=== PATIENT | female | born 1950 | race Caucasian/White ===

== ENCOUNTER 2016-07-20 09:18 | Inpatient (IN) | payer MEDICARE, OTHER ==
[2016-07-20] VITALS (10 sets, daily range): BP systolic 116–137; BP diastolic 73–82; PULSE 54–76; RESP 12–17; O2SAT 93–97
[~2016-07-20] VITALS: Ht 170.2 cm; Wt 71.7 kg
[~2016-07-20 09:18] MED LIST: Clindamycin 600 mg/50 mL D5W IV ONE; Lactated Ringer's 1,000 ML IV SCH; OMEP20TA86 PO; acyclovir PO; pravastatin PO
[2016-07-20] MEDS ORDERED: HYDR-656 PO (10:06)
[2016-07-20] MEDS ORDERED: KEN25CR EXT (10:06)
[2016-07-20] MEDS ORDERED: OXYC1TAB24 PO (10:06)
[2016-07-20] MEDS ORDERED: Lactated Ringer's 1,000 ML IV ONE (10:21)
--- NOTE | 2016-07-20 10:48 | PCM.HPANE ---
Patient Data Surgeon Admitting Provider: Attending Provider:Kvng Evans MD Primary Care Physician:Dari Owen Other Provider:Rosetta Farias Anesthesia Reason for Visit Right Knee Arthritis Ht/WT & BMI Height (Feet): 5 Height (Inches): 7 Weight (Kilograms): 71.7 Body Mass Index 24.00 Allergies Coded Allergies: Cephalosporins (Verified Allergy, Unknown, HIVES, 07/20/16) latex (Verified Allergy, Unknown, rash, 07/17/16) nickel (Verified Allergy, Unknown, RASH, 07/20/16) Uncoded Allergies: CHLORHEXADINE (Allergy, Unknown, rash, 07/17/16) Past Anesthesia History Anesthesia History: Positive for:: Anesthesia Reactions (significant nausea after one shoulder surgery), Denies:: Abnormal Airway, Difficult Intubation, Fam Anesthesia Reaction ( nausea ) Diabetes History Hx Diabetes?: No MRSA MRSA: No Medications Hypertension Medication: No Home Meds Incl Beta Adriel: No Reported Medications hydrOXYzine Hcl (HydrOXYzine Hcl)25 Mg Fgfcfm91 Mg PO HS PRN For Pain 07/20/16 oxyCODONE-Acetaminophen 5-325 mg 1 Each Tablet1 Tab PO Q6H PRN For Pain Ref 0 07/20/16 Triamcinolone Acet (Triamcinolone Acetonide Cream)1 Applic/0.25 Gm Cr1 Applic EXT BID #60 GM Ref 0 07/20/16 [pravastatin] No Conflict Check40 Mg PO DAILY 07/17/16 Omeprazole 20 Mg Tablet.dr20 Mg PO BID Ref 0 07/17/16 [acyclovir] No Conflict Ouepc564 Mg PO PRN PRN outbreaks 07/17/16 Discontinued Reported Medications Estradiol-Expunged Drug, Do Not Renew! (Estrace-Expunged Drug, Do Not Renew!) 0.5 Mg Tablet 12/23/07 Progesterone,Micron-Expunged Drug, Do Not Jose (Prometrium-Expunged Drug, Do Not Renew!)100 Mg Capsule 12/23/07 History History of ENT Problems?: No HEENT History: Denies:: Abnormal Airway Cataracts Difficult Intubation Dysphagia Glaucoma Hearing Problem Sinus Problem TMJ Hx of Heart Problems?: No Cardiovascular History: Positive for:: Hypertension (hld) Denies:: AICD Atrial Fibrillation Cardiac Surgery Chest Pain Congestive Heart Failure Coronary Artery Disease Edema Heart Murmur Irregular Heartbeat Pacemaker Peripheral Vascular Hx of Respiratory Problem?: No Respiratory History: Denies:: Asthma COPD Emphysema Oxygen Administration Pneumonia Pulmonary Embolism Tuberculosis Use of C-PAP Machine Hx Neurologic Problems?: Yes Neurological History: Denies:: Alzheimer's Disease CVA Dementia Dizziness Headaches Multiple Sclerosis Parkinson's Disease Seizures TIA Hx of GI Problems?: Yes Gastrointestinal History: Positive for:: Gall Bladder Disease (removed) Gastroesphageal Reflux Heartburn Denies:: Diverticulitis Gastrointestinal Bleeding Hepatitis Hiatal Hernia Rectal Bleeding Hx of Problems?: No Genitourinary History: Denies:: Kidney Stones Urinary Tract Infection Female Hx: Denies:: Currently (post menopausal) Problems with Breasts? Skin History: Denies:: History Skin Disorders? 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 Denies:: Blood Transfuse Reaction Blood Transfusions Hx Diabetes: No Hx Alcohol Use: YesAlcoholic Drinks Per Day: 1-2 glasses wine dailyHx Substance Use: NoHave You Smoked inLast 12 mo: No Stop/Bang Treated for Sleep Apnea?: No Do You Have a CPAP Machine?: No S-Snoring: Do You Snore Loudly: No T-Tired: feel tired, fatigued: No O-Obsered: Observed not breath: No P-Blood Pressure: treated: No B- Body Mass Index > 35 kg/m2: No A- Age over 50: Yes N- Neck Large Circumference: No G- Gender Male: No TAMIKA Total Score: 1 TAMIKA Risk Assessment: Low Risk, <3 Yes Risk Assessment Category Category 1A: Patient has history of documented sleep apnea, and HAS NOT received any narcotic, sedative or anesthesia administration during this stay. Category 1B: Patient has history of documented sleep apnea, and HAS received any narcotic , sedative or anesthesia administration during this stay Category 2: Patient has SUSPECTED Obstructive Sleep Apnea, and HAS received any narcotic , sedative or anesthesia administration during this stay. Category 3: Patient has SUSPECTED Obstructive Sleep Apnea and HAS NOT received narcotic, sedative or anesthesia administration during this stay. Category 4: Outpatient in Procedural Areas with known sleep apnea or who screen positive for High Risk via the STOP/BANG questionnaire. Exam Exam Vital Signs Vital Signs Date Time Temp Pulse Resp B/P Pulse Ox O2 Delivery O2 Flow Rate FiO2 07/20/16 09:50 35.8 59 16 137/79 95 Room Air General Appearance: Oriented X3 HEENT/AIRWAY: MP 2 Lungs: Normal Air Movement Heart: Regular Rate/Rhythm Meds/Labs/Diagnostics Admission Meds Current Medications Vancomycin HCl 1250 mg/Dextrose/ Water 250 ml @ 166.667 mls/hr PREOP ONCE IV Last administered on 07/20/16at 10:20; Start 07/20/16 at 06:00; Stop 07/20/16 at 07:29; Status DC Lactated Ringer's (Lr) 1,000 ml @ ud STK-MED ONCE IV Last administered on at 10:21; Start 07/20/16 at 10:21; Stop 07/20/16 at 10:22; Status DC Plan Impression Patient chart reviewed, patient interviewed and anesthestic plan with risks, benefits, and alternatives discussed, and informed consent obtained. NPO Status: 07/20/16 0700 ASA Physical Status: ASA2 Mod Systemic Disease Anesthetic Plan: GA, Regional Block Bene/Risks/Altern/Consents: Yes HP Complete Prior to Induction: Yes Tony Sebastian MD Jul 20, 2016 10:48
[2016-07-20] MEDS ORDERED: Bupivacaine Liposome 1.3% 20 mL Inj INFILTRATE ONE (12:00)
[2016-07-20] MEDS ORDERED: Bupivacaine-MPF 0.25%/EPI 30 mL Inj INFILTRATE ONE (12:00)
[2016-07-20] MEDS ORDERED: Gentamicin 40 mg/mL 2 mL Inj IRRIGATION ONE (12:00)
[2016-07-20] MEDS ORDERED: Bupivacaine Liposome 1.3% 20 mL Inj ONE (12:04)
[2016-07-20] MEDS ORDERED: Magnesium Hydroxide 10 mL Oral Concentration PO PRN (12:35)
[2016-07-20] MEDS ORDERED: Vancomycin Dose per Pharmacist XX ONE (12:35)
[2016-07-20] MEDS ORDERED: Polyethylene Glycol (PEG) 17 Gm Powder PO PRN (12:35)
[2016-07-20] MEDS ORDERED: Ketorolac 15 mg/mL Inj IVPUSH PRN (12:35)
[2016-07-20] MEDS ORDERED: HYDROcodone-APAP 5-325 mg Tablet PO PRN (12:35)
[2016-07-20] MEDS ORDERED: diphenhydrAMINE 25 mg Capsule PO PRN (12:35)
[2016-07-20] MEDS ORDERED: HYDROmorphone 1 mg/mL Inj IVPUSH PRN (12:35)
[2016-07-20] MEDS ORDERED: Ondansetron 2 mg/mL 2 mL Inj IVPUSH PRN ×2 (12:35→13:30)
[2016-07-20] MEDS ORDERED: Sodium Biphos-Phos 133 mL Enema RECTAL PRN (12:35)
[2016-07-20] MEDS ORDERED: MetoCLOpramide 5 mg/mL 2 mL Inj IVPUSH PRN (12:35)
[2016-07-20] MEDS ORDERED: Lactated Ringer's 1,000 ML IV SCH (13:29)
[2016-07-20] MEDS ORDERED: Lactated Ringer's 500 ML IV PRN (13:29)
--- NOTE | 2016-07-20 13:29 | DRSVH ---
PROCEDURE: X-RAY RIGHT KNEE, ONE OR TWO VIEWS ([id number]) INDICATIONS: tka TECHNIQUE: 2 view(s) of the knee acquired. COMPARISON: [facility], CR, XR KNEE ARTHRITIC SERIES RT, 05/29/2016, 13:54. FINDINGS: Bones: Patient is status post knee joint arthroplasty. Hardware components are in expected position s. Visualized bony structures are intact. Soft tissues: Overlying postoperative changes are noted. IMPRESSION: Right knee arthroplasty with expected post surgical changes. Dictated by: Lorri Blackwell M.D. on 07/20/2016 at 13:28 Approved by: Lorri Blackwell M.D. on 07/20/2016 at 13:28
[2016-07-20] MEDS: HYDROmorphone 1 mg/mL Inj IVPUSH PRN ×2 (13:30→13:42)
[2016-07-20] MEDS ORDERED: EPHEDrine Sulfate 50 mg/mL Inj IVPUSH PRN (13:30)
[2016-07-20] MEDS ORDERED: fentaNYL-PF 50 mCg/mL 2 mL Inj IVPUSH PRN (13:30)
[2016-07-20] MEDS ORDERED: Phenylephrine 10,000 mCg/mL Inj IVPUSH PRN (13:30)
[2016-07-20] MEDS ORDERED: Dexamethasone 4 mg/mL Inj IVPUSH PRN (13:30)
--- NOTE | 2016-07-20 13:31 | PCM.ANEP1 ---
Post Anesthesia Phase 1 PACU Phase 1 Assessment Vital Signs Vital Signs Date Time Temp Pulse Resp B/P Pulse Ox O2 Delivery O2 Flow Rate FiO2 07/20/16 09:50 35.8 59 16 137/79 95 Room Air Anesthetic Administered: GA Level of Alertness: Awake, talking Pain: No Nausea or Vomiting: No Oxygen Delivery: Room Air Lungs: Normal Air Movement Tony Sebastian MD Jul 20, 2016 13:30
--- NOTE | 2016-07-20 13:31 | PCM.ANEP2 ---
Post Anesthesia Evaluation ASA/CMS Post Anesthesia VS in Patient's Normal Range?: Yes Resp Stable; Airway Patent?: Yes CV Function & Hydration Stable: Yes Mental Status Recovered?: Yes Pain control Satisfactory?: Yes N/V Control Satisfactory?: Yes Tony Sebastian MD Jul 20, 2016 13:31
--- NOTE | 2016-07-20 15:30 | NUR ---
ADMIT TO [facility] Patient arrived to room 1005 in hospital bed. Alert and oriented, answering questions. Neurovascular checks WNL to R foot. Alvarado wrap bandage in place with ice pack to R knee. Hemovac in place and clamped until 1800. On 2 LPM NC with O2 sats @ 97%. IV patent to R hand. Rates pain 2/10 in R knee, slight discomfort but tolerable. Had IV dilaudid in PACU. Oriented to room. Will continue with hourly rounding.
--- NOTE | 2016-07-20 16:00 | OP ---
[address] [address] OPERATIVE REPORT PATIENT: LUZ PURCELL : 1950 MR#: [id number] ADMIT: 07/20/2016 JOB ID: [id number] DATE OF SURGERY: 07/20/2016 PREOPERATIVE DIAGNOSIS(ES): Advanced medial compartment osteoarthritis, right knee. POSTOPERATIVE DIAGNOSIS(ES): Advanced medial compartment osteoarthritis, right knee. PROCEDURE: Total knee replacement. SURGEON: Kvng Evans MD. OUTBOUND SALES EXECUTIVE: Ben Grimes PA-C. Field Court Researcher required due to the major complexity of the operation. INDICATIONS: This woman has had progressive disability, uncontrolled by conservative treatment. She elected to proceed with a total knee replacement. She understands and accepts the potential for risks and complications, which include, but are not limited to, infection, thromboembolic and neurovascular events, as well as potential for implant failure. Understanding these, she wishes to proceed. DESCRIPTION OF PROCEDURE: The patient was prepped and draped in the usual sterile fashion. An anteromedial approach was made to the knee. The dissection was carried down. The patella was subluxed laterally, cut transversely, sized. A 32 patellar protection plate was utilized. A drill hole was placed in the distal femur. A 5-degree valgus distal femoral cut was made. The external rotation tool was utilized, and the femur was sized to a 5. Chamfer-cutting block affixed in appropriate position and rotation, and drill holes and chamfer cuts were made. All meniscal tissue and osteophytes removed from the knee. The extramedullary tool was utilized to cut the proximal tibia. This was sized to a D chamfer block. Our D tibia affixed in appropriate position and rotation. The tibia was prepared in a standard fashion. Trial reduction performed. A 10 mm poly produced excellent flexion, extension, balance and tracking. All meniscal tissue and osteophytes were removed from the knee. Pressurized lavage was followed by pressurized cementation of the components. Excess cement was removed during the curing process. Final construct was assembled. Poly snapped securely into place. Wounds irrigated with copious quantities of sterile irrigation and dilute Betadine solution. A deep Hemovac drain was left, and the knee was closed with #2 Quill deep, followed by 2-0 Vicryl, 3-0, 4-0 intracuticular stitch. Sterile dressings were applied. The patient was returned to the recovery room in stable condition. Standard postoperative plan recommended.
[2016-07-20] MEDS ORDERED: CeFAZolin Inj 2 GM in IV Premix 1 EACH IV SCH (16:30)
[2016-07-20] MEDS: oxyCODONE-Acetamin 5-325 mg Tablet PO PRN ×3 (16:51→22:56)
[2016-07-20] MEDS: Sodium Chloride LOK Flush 10 mL Syringe IV SCH (16:51)
[2016-07-20 18:13] LABS: APPEARANCE,URINE CLEAR (CLEAR,HAZY); COLOR,URINE YELLOW (YELLOW); OCCULT BLOOD,URINE NEGATIVE (NEGATIVE); UROBILINOGEN,URINE NORMAL (NORMAL)
[2016-07-20] MEDS: Senna-Docusate 8.6-50 mg Tablet PO SCH (19:40)
[2016-07-20] MEDS ORDERED: fentaNYL-PF 50 mCg/mL 2 mL Inj ONE (22:19)
[2016-07-21] MEDS: Sodium Chloride LOK Flush 10 mL Syringe IV SCH ×3 (00:28→17:05)
[2016-07-21] MEDS: oxyCODONE-Acetamin 5-325 mg Tablet PO PRN ×6 (03:11→21:10)
--- NOTE | 2016-07-21 04:10 | NUR ---
Pain Pt reporting pain up to 3/10 and reports pain to be tolerable taking 1 tab of Percocet every 4 hrs. Pt also reporting increased stomach acid and was given milk of mag. Pt has been getting up to the BR with SBA and FWW. Tolerating activity well. Hemovac so far has put out 130 ml. Continue to monitor.
[2016-07-21 05:51] VITALS: BP 117/70; PULSE 70; RESP 16; O2SAT 95
[2016-07-21] MEDS: Senna-Docusate 8.6-50 mg Tablet PO SCH ×2 (07:53→21:10)
--- NOTE | 2016-07-21 08:20 | PCM.PNORTH ---
Subjective Date of Service: Jul 21, 2016 Visit Information: Reason for Visit Right Knee Arthritis Surgery/Surgery Date R TKA 07/20/16 Post-Op Day # Date of Admission: Jul 20, 2016 at 14:08 Hospital Day # Subjective Foundation awake and alert this morning and sitting up in bed. Well positioned. No complaints of pain at this time. Discussed typical postoperative course with patient and encouraged this patient with formal therapy. Patient does have help at home and anticipates discharging his home on her before postop day #3. Patient does have stairs at her home but he is planning to reside on the ground floor until she is able to navigate stairs. Patient does make a request for a left platform arm device on her walker secondary to recent carpometacarpal joint replacement surgery at the left hand. Postop General: No Complaints, No Shortness of Breath, No Chest Pain, Good Appetite Pain Management: PO Objective Exam Objective Orientation: Alert and oriented 3 and pleasant. Dressing: Interoperative dressing clean dry and intact Wound: Not observed today Compartments: Calf and thigh are soft and nontender. Mobility/sensation: Toe wiggle and sensation are intact in right lower extremity distally Fitch: Absent Drain: Hemovac drain is in place and working. Gait: No gait with physical therapy yet as of this time. Vital Signs and I/O Vital Sign - Last Date Time Temp Pulse Resp B/P Pulse Ox O2 Delivery O2 Flow Rate FiO2 07/21/16 05:51 36.7 70 16 117/70 95 Room Air 07/20/16 14:36 2.00 Intake and Output 07/20/16 07/20/16 07/21/16 Cumulative From/Thru 15:00 23:00 07:00 07/17/16 16:37 - 07/21/16 05:51 Intake Total 1410 ml 550 ml 800 ml 2760 ml Output Total 700 ml 225 ml 925 ml Balance 1410 ml -150 ml 575 ml 1835 ml Intake Oral 550 ml 800 ml 1350 ml IV Total 1410 ml 1410 ml Output Urine Total 700 ml 60 ml 760 ml Drainage Total 0 ml 165 ml 165 ml # Voids 2 2 # Bowel Movements 0 0 Lab & Micro Results Laboratory Tests Test 07/20/16 18:00 07/21/16 06:30 Urine Color Yellow (YELLOW) Urine Appearance Clear (CLEAR,HAZY) Urine pH 6.0 (5.0-8.0) Urine Specific Index 1.020 (1.003-1.035) Urine Protein Negativemg/dL (NEG,TRACE) Urine Glucose (UA) Negativemg/dL (NEGATIVE) Urine Ketones Tracemg/dL (NEGATIVE) Urine Occult Blood Negative (NEGATIVE) Urine Nitrite Negative (NEGATIVE) Urine Bilirubin Negative (NEGATIVE) Urine Urobilinogen Normalmg/dL (NORMAL) Urine Leukocyte Esterase Negative (NEGATIVE) Urine RBC 0-2/hpf (0-2) Urine WBC 0-5/hpf (0-5) Urine Epithelial Cells None/hpf (NONE-MOD) Urine Crystals None seen (NONE SEEN) Urine Bacteria Few/hpf (NONE-FEW) Urine Hyaline Casts None/lpf (NONE) Urine Granular Casts None seen (NONE SEEN) Urine Waxy Casts None seen (NONE SEEN) Urine Red Blood Cell Casts None seen (NONE SEEN) Urine White Blood Cell Casts None seen (NONE SEEN) Urine Mucus None seen (None Seen) Urine Trichomonas None seen (NONE SEEN) Urine Yeast None (NONE SEEN) Urinalysis Comment None Urine Culture Reflexed Not indicated General Appearance: Alert, Oriented X3, Cooperative, No Acute Distress Extremities: No Compartment Syndrom Noted, Thigh & Calf Soft/Nontender Postop Sensory Motor: Distal Motor Intact, Movement in Toes, Distal Sensation Intact SURGICAL WOUND : Drain Location Body Site: Knee Wound Drainage Type: Hemovac Activity: Activity per PT, Ambulate with PT (weightbearing as tolerated on the right lower extremity using a front wheeled walker with left upper extremity platform) Catheters: None Assessment & Plan Impression Patient is a 66-year-old female who is undergone an elective right total knee arthroplasty on 07/20/2016. She is well alert and oriented and in good spirits. She is planning for a quick recovery and participation with formal therapy with discharge to home. Problems: Plan Postop day # 1 from right total knee arthroplasty on 07/20/[address] Kvng Evans. Weight bearing status: Weightbearing as tolerated on the right lower extremity using a frontwheel walker with left upper extremity platform Mobility aid: Forward walker with left upper extremity platform Immobilization: None Precautions: None Physical therapy: Continue formal physical therapy for mobility, gait and safety. Please use frontwheel walker with left upper extremity platform. Pain control: Continue pain control with by mouth pain medications. Please avoid IV pain medications. DVT prophylaxis: ASA 325 mg EC by mouth twice a day 6 weeks postop for DVT prophylaxis. Wound care: Keep wound clean, dry and covered until seen in office in 2 weeks. Infectious DZ: None Fitch: Absent Dressing: Interoperative dressings clean dry and intact and will be changed on postop day #2 Drain: Hemovac drain is in place and will be discontinued today on 2015. Nursing: Nursing please discontinue Hemovac drain today on postop day #1. 2-week follow-up: Follow-up in 2 weeks at [facility] orthopedic clinic on prearranged appointment for wound check and suture removal. 6-week follow-up: Follow-up in 6 weeks at [facility] orthopedic clinic on prearranged appointment with Dr. Kvng Evans with right 2 view knee x- rays on arrival. Discharge plan: Anticipate discharge to home with family has caregiver for postop day #3. VTE Prophylaxis: SCDs (SCD on the left lower extremity), Other (ASA 325 mg EC by mouth twice a day 6 weeks postop for DVT prophylaxis) Jasson Freire PA-C Jul 21, 2016 08:20
[2016-07-21] MEDS ORDERED: Vancomycin Inj 1,000 MG in IV Premix 1 EACH IV SCH (08:30)
[2016-07-21 08:56] LABS: BASOPHILS % (AUTO) 0.1 % (0-3); EOSINOPHILS % (AUTO) 0.2 % (0-5); MONOCYTES % (AUTO) 9.7 % (4-12); Mean Corpuscular Hemoglobin 30.9 pg (27.0-35.0); Mean Corpuscular Volume 91.7 fL (81-100); NEUTROPHILS % (AUTO) 68.5 % (40-74); Platelet Count 316 bil/L (150-400)
[2016-07-21] MEDS ORDERED: Ondansetron 2 mg/mL 2 mL Inj ONE (11:29)
[2016-07-21] MEDS ORDERED: Propofol 10,000 mCg/mL 20 mL Inj ONE (11:29)
[2016-07-21] MEDS ORDERED: Dexamethasone 4 mg/mL Inj ONE (11:29)
[2016-07-21] MEDS ORDERED: MetoCLOpramide 5 mg/mL 2 mL Inj ONE (11:29)
[2016-07-21 13:46] VITALS: BP 142/80; PULSE 52; RESP 17; O2SAT 96
--- NOTE | 2016-07-21 15:59 | NUR ---
PAIN/ACTIVITY Adductor block wearing off and patient reports pain 8/10 burning and aching pain. Required 2 tabs of percocet for pain management, but states the medication was effective in bringing down pain. Ambulated in hallway with platform walker with therapy. Ambulating to bathroom with 1 person SBA.
[2016-07-21 21:05] VITALS: BP 134/85; PULSE 60; RESP 16; O2SAT 95
[2016-07-21] MEDS: Pantoprazole 20 mg ER24 Tablet PO SCH (21:10)
[2016-07-22] MEDS: Sodium Chloride LOK Flush 10 mL Syringe IV SCH ×2 (00:37→08:41)
[2016-07-22] MEDS: oxyCODONE-Acetamin 5-325 mg Tablet PO PRN ×4 (01:10→12:08)
[2016-07-22 04:06] VITALS: BP 143/77; PULSE 60; RESP 16; O2SAT 94
--- NOTE | 2016-07-22 06:19 | NUR ---
Pain/hemovac Pt reporting pain up to 5/10 and is taking 1 tab of Percocet q 4 hrs and pt reports this to be effective for pain control. Hemovac DC'd this morning, intact, without issues. Gauze and tegaderm applied to site. Took down Alvarado wrap dressing, Steri strips to incision CDI, applied Island dressing. Pt continues to get up to BR with SBA and platform walker, tolerating activity well. Right knee a bit swollen this morning, ice applied.
[2016-07-22] MEDS: Pantoprazole 20 mg ER24 Tablet PO SCH (08:03)
[2016-07-22] MEDS: Senna-Docusate 8.6-50 mg Tablet PO SCH (08:41)
[2016-07-22] MEDS ORDERED: hydrOXYzine Pamoate 25 mg Capsule PO PRN (09:30)
--- NOTE | 2016-07-22 09:55 | PCM.PNORTH ---
Subjective Date of Service: Jul 22, 2016 Visit Information: Reason for Visit Right Knee Arthritis Surgery/Surgery Date R TKA 07/20/16 Post-Op Day # Date of Admission: Jul 20, 2016 at 14:08 Hospital Day # Subjective Found patient awake and alert and sitting on the edge of the bed preparing for physical therapy. Briefly discussed with patient the fact that she has had increased pain since yesterday on her block wore off. She also indicates that she is feeling comfortable now. I have advised patient that this is a normal part of her process and that we will help her get pain under control today. I have encouraged her to participate fully with formal physical therapy and that she may be able to discharged today if her pain is controlled. Postop General: No Complaints, No Shortness of Breath, No Chest Pain, Good Appetite Pain Management: PO Objective Exam Objective Orientation: Alert and oriented 3 and pleasant. Dressing: Interoperative dressing is clean dry and intact Wound: Wound is observed today and is in good condition with no focal swelling or erythema. Compartments: Calf and thigh are soft and nontender. Mobility/sensation: Toe wiggle and sensation are intact at right lower extremity distally. Fitch: Absent Drain: Absent Gait: Gait 40 feet yesterday on 07/21/2016 with formal physical therapy. Vital Signs and I/O Vital Sign - Last Date Time Temp Pulse Resp B/P Pulse Ox O2 Delivery O2 Flow Rate FiO2 07/22/16 04:06 36.6 60 16 143/77 94 Room Air 07/20/16 14:36 2.00 Intake and Output 07/21/16 07/21/16 07/22/16 Cumulative From/Thru 15:00 23:00 07:00 07/17/16 16:37 - 07/22/16 04:06 Intake Total 1040 ml 400 ml 4200 ml Output Total 895 ml 1300 ml 3120 ml Balance 145 ml -900 ml 1080 ml Intake Oral 1040 ml 400 ml 2790 ml IV Total 1410 ml Output Urine Total 800 ml 1250 ml 2810 ml Drainage Total 95 ml 50 ml 310 ml # Voids 2 # Bowel Movements 0 0 Result Diagram: 07/21/16 0630 General Appearance: Alert, Oriented X3, Cooperative, No Acute Distress Extremities: No Compartment Syndrom Noted, Thigh & Calf Soft/Nontender Postop Sensory Motor: Distal Motor Intact, Movement in Toes, Distal Sensation Intact SURGICAL WOUND : Drain Location Body Site: Knee Wound Drainage Type: Hemovac Activity: Activity per PT, Ambulate with PT (weightbearing as tolerated on the right lower extremity using a front wheeled walker with left upper extremity platform) Catheters: None Assessment & Plan Impression Patient is participating well with formal physical therapy. She has had an increase in pain when her block wore off but this is in the process of being managed at this time. Problems: Plan Postop day # 2 from right total knee arthroplasty on 07/20/[address] Kvng Evans. Weight bearing status: Weightbearing as tolerated on the right lower extremity using a frontwheel walker with left upper extremity platform Mobility aid: Forward walker with left upper extremity platform Immobilization: None Precautions: None Physical therapy: Continue formal physical therapy for mobility, gait and safety. Please use frontwheel walker with left upper extremity platform. Patient should begin outpatient physical therapy as soon as possible after discharge. Pain control: Continue pain control with by mouth pain medications including Percocet 5, Vistaril.. Please avoid IV pain medication. DVT prophylaxis: ASA 325 mg EC by mouth twice a day 6 weeks postop for DVT prophylaxis. Wound care: Keep wound clean, dry and covered until seen in office in 2 weeks. Infectious DZ: None Fitch: Absent Dressing: Postoperative dressing is found in place and has been changed by nursing. Wound is observed today and found to be clean dry and intact with no focal swelling or erythema. Drain: Absent Nursing: Bilateral thigh high HANH hose were ordered for the patient today. Please apply these prior to discharge. 2-week follow-up: Follow-up in 2 weeks at [facility] orthopedic clinic on prearranged appointment for wound check and suture removal. 6-week follow-up: Follow-up in 6 weeks at [facility] orthopedic clinic on prearranged appointment with Dr. Kvng Evans with right 2 view knee x- rays on arrival. Discharge plan: Discharge patient to home today with family has caregiver's on 07/22/2016 after second physical therapy session and stair training. VTE Prophylaxis: SCDs (SCD on the left lower extremity), HANH Hose, Other (ASA 325 mg EC by mouth twice a day 6 weeks postop for DVT prophylaxis) Jasson Freire PA-C Jul 22, 2016 09:22
--- NOTE | 2016-07-22 10:35 | PCM.DIORTH ---
Ortho Discharge Instruction Date of Service: Jul 22, 2016 Dates of Hospitalization Date of Hospital Admission Jul 20, 2016 at 14:08 Providers Admitting Physician: Kvng Evans MD Primary Care Physician: Dari Owen Attending Physician: Kvng Evans MD Diet Discharge Diet: No restrictions Activity Discharge Activity-General: Try not to overdue, Be up and about, Balance rest and activity, Ice incision 3-5 time/day for 20min, Activity as pain allows, Activity as energy allows, No driving while taking narcotic Right Lower Extremity: Weight Bearing as tolerated Discharge Assist Device: Front Wheeled Walker Dressing and Incisional Care Discharge Dressing Care: Keep dressing clean, dry & intact, Change soiled dressing Discharge Hygiene: May shower (patient may shower but dressing and wound should be kept clean dry and intact.), DO NOT soak incision under water, NO bathtub, hot tub or whirlpool Additional Instructions Discharge Instructions Postop day # 2 from right total knee arthroplasty on 07/20/[address] Kvng Evans. Weight bearing status: Weightbearing as tolerated on the right lower extremity using a frontwheel walker with left upper extremity platform Mobility aid: Forward walker with left upper extremity platform Immobilization: None Precautions: None Physical therapy: Continue formal physical therapy for mobility, gait and safety. Please use frontwheel walker with left upper extremity platform. Patient should begin outpatient physical therapy as soon as possible after discharge. Pain control: Continue pain control with by mouth pain medications including Percocet 5, Vistaril.. Please avoid IV pain medication. DVT prophylaxis: ASA 325 mg EC by mouth twice a day 6 weeks postop for DVT prophylaxis. Wound care: Keep wound clean, dry and covered until seen in office in 2 weeks. Additional Island dressings are given to the patient this morning for home use. Infectious DZ: None Fitch: Absent Dressing: Postoperative dressing is found in place and has been changed by nursing. Wound is observed today and found to be clean dry and intact with no focal swelling or erythema. Drain: Absent Nursing: Bilateral thigh high HANH hose were ordered for the patient today. Please apply these prior to discharge. 2-week follow-up: Follow-up in [address] [facility] orthopedic clinic on prearranged appointment for wound check and suture removal. 6-week follow-up: Follow-up in [address] [facility] orthopedic clinic on prearranged appointment with Dr. Kvng Evans with right 2 view knee x- rays on arrival. Discharge plan: Discharge patient to home today with family has caregiver's on 07/22/2016 after second physical therapy session and stair training. Follow Up Plan Follow Up Plan Patient will be seen at 2 weeks, 6 weeks and 12 weeks postoperatively. Patient will be seen when necessary in the interim. Follow-up Provider (F9): Kvng Evans MD Follow-up appointment: Weeks (follow-up in [address] [facility] orthopedic clinic one prearranged appointment with mid-level provider for wound check and suture removal.) Call your provider for: Fever, Chills, Shortness of breath, Vomitting, Drainage at incision Jasson Freire PA-C Jul 22, 2016 10:35
[2016-07-22] MEDS ORDERED: DOCU-41 PO (10:42)
[2016-07-22] MEDS ORDERED: Aspirin-Expunged Drug, Do Not Renew! PO (10:42)
[2016-07-22] MEDS ORDERED: HYDR-3797 PO (10:42)
[2016-07-22] MEDS ORDERED: OXYC1TAB24 PO (10:42)
--- NOTE | 2016-07-22 10:45 | PCM.DC.ORT ---
Discharge Summary Date of Service: Jul 22, 2016 Date of Hospital Admission: Jul 20, 2016 at 14:08 Date of Surgery: Aug 20, 2016 Date of Discharge: Jul 22, 2016 Reason for Hospitalization: Severe right knee osteoarthritis Procedures Performed: Right total knee arthroplasty Hospital Course: Patient was admitted to the preoperative care unit on 07/20/2016 and upon processing was taken to the operating room where her procedure was performed in incident. He was then awakened and transferred to the postoperative care unit and upon recovery from anesthesia patient was transferred to the orthopedic care floor where she participated well with formal physical therapy and received recommendation of discharge to home with family's care givers using front wheeled walker. Patient was discharged subsequently on 07/22/2016. Problems: (1) Osteoarthritis Status: Acute ICD Code: M19.90 Disposition: Discharge to home with family has caregivers Orthopedic Follow up Plan: In Two Weeks in my clinic (follow-up in 2 weeks at [facility] orthopedic clinic on prearranged appointment for wound check and suture removal.) Discharge Instructions: Postop day # 2 from right total knee arthroplasty on 07/20/[address] Kvng Evans. Weight bearing status: Weightbearing as tolerated on the right lower extremity using a frontwheel walker with left upper extremity platform Mobility aid: Forward walker with left upper extremity platform Immobilization: None Precautions: None Physical therapy: Continue formal physical therapy for mobility, gait and safety. Please use frontwheel walker with left upper extremity platform. Patient should begin outpatient physical therapy as soon as possible after discharge. Pain control: Continue pain control with by mouth pain medications including Percocet 5, Vistaril.. Please avoid IV pain medication. DVT prophylaxis: ASA 325 mg EC by mouth twice a day 6 weeks postop for DVT prophylaxis. Wound care: Keep wound clean, dry and covered until seen in office in 2 weeks. Additional Island dressings are given to the patient this morning for home use. Infectious DZ: None Fitch: Absent Dressing: Postoperative dressing is found in place and has been changed by nursing. Wound is observed today and found to be clean dry and intact with no focal swelling or erythema. Drain: Absent Nursing: Bilateral thigh high HANH hose were ordered for the patient today. Please apply these prior to discharge. 2-week follow-up: Follow-up in 2 weeks at [facility] orthopedic clinic on prearranged appointment for wound check and suture removal. 6-week follow-up: Follow-up in 6 weeks at [facility] orthopedic clinic on prearranged appointment with Dr. Kvng Evans with right 2 view knee x- rays on arrival. Discharge plan: Discharge patient to home today with family has caregiver's on 07/22/2016 after second physical therapy session and stair training. Management Plan: Patient will be seen at 2 weeks, 6 weeks and 12 weeks postoperatively. Patient will be seen when necessary in the interim. ([acyclovir]) 400 MG PO PRN PRN PRN outbreaks ([pravastatin]) 40 MG PO DAILY ([Aspirin-Expunged Drug, Do Not Renew!]) 325 MG TABLET 325 MG PO BID Docusate Sodium (Colace) 100 Mg Capsule 100 MG PO BID Hydroxyzine Pamoate (HydrOXYzine Pamoate) 25 Mg Capsule 25-50 MG PO Q4 PRN PRN RESTLESSNESS Omeprazole (Omeprazole) 20 Mg Tablet.dr 20 MG PO BID Triamcinolone Acet (Triamcinolone Acetonide Cream) 1 Applic/0.25 Gm Cr 1 APPLIC EXT BID oxyCODONE-Acetaminophen 5-325 mg (oxyCODONE-Acetaminophen 5-325 mg) 1 Each Tablet 1-2 TAB PO q4-6h PRN PRN For Pain Jasson Freire PA-C Jul 22, 2016 10:45
--- NOTE | 2016-07-22 11:56 | NUR ---
Social Work Note: Continued Discharge Planning Data& Assessment: Pt is requiring an adaptor for her walker, script provided by . YUE contacted local DME companies and all companies are closed for the day. YUE offered to fax the script to preferred DME company (list provided for preferences) and the pt could follow up with the DME company tomorrow regarding picking up the adaptive equipment. Pt has a preference for [facility] in [place]. Script faxed, pt plans to follow up with [facility] tomorrow. Pt denies any other needs. No other discharge needs identified. Plan: Anticipated discharge home via POV when medically ready with follow up with [facility] regarding DME tomorrow. Pt denies any other needs. No other discharge needs identified. ALMA ROSA Tyler
--- NOTE | 2016-07-22 13:01 | NUR ---
Pain This morning pt c/o 5-12/29 pain to right knee, expressing that pain has been an issue since her nerve block wore off yesterday. Pt medicated w/ 1 tab percocet and shortly after IV Toradol, which helped bring pain to 08/31. Plan for patient to discharge this afternoon, so w/ lunch, pt given 2 tabs percocet and 25mg Visteral, which has worked well and pt comfortable discharging home from a pain control perspective.
--- NOTE | 2016-07-22 13:03 | NUR ---
Discharge home MD orders to discharge pt home. IV d/c'd intact. Discharge instructions discussed, w/ present, including prescriptions, follow-up appts, activity and incisional care. Pt is planning on showering when she gets home, so HANH drummond given to pt, who agreed to apply them after shower. is going to corn picker special platform walker tomorrow. Pt and both voiced understanding of instructions. All belongings w/ pt, who was taken off floor at 1305, in stable condition.
== END 2016-07-22 13:00 | disposition home or self-care (01) | DRG 470 ==
LOC: SAS 09:18 → OSC 14:08
PROVIDERS: ADMIT Orthopaedic Surgery; ATTEND Orthopaedic Surgery
PROC: 0SRC0J9 Replacement of Right Knee Joint with Synthetic Substitute, Cemented, Open Approach (ICD-10-PCS; principal; 2016-07-20 10:45)
DX: M17.11 Unilateral primary osteoarthritis, right knee (principal); I10 Essential (primary) hypertension; K21.9 Gastro-esophageal reflux disease without esophagitis

== ENCOUNTER 2016-08-16 08:49 | Day surgery (SDC) | payer MEDICARE, OTHER ==
[~2016-08-16] VITALS: Ht 172.7 cm; Wt 68.0 kg
[~2016-08-16 08:49] MED LIST changes: +0.9% Sodium Chloride 1,000 ML IV PRN; -Clindamycin 600 mg/50 mL D5W IV ONE; +KEN25CR EXT; -Lactated Ringer's 1,000 ML IV SCH; +Sodium Chloride LOK Flush 10 mL Syringe IV PRN; +fentaNYL-PF 50 mCg/mL 2 mL Inj IVPUSH PRN
[2016-08-16 09:09] VITALS: BP 121/81; PULSE 66; RESP 16; O2SAT 96
[2016-08-16 10:22] VITALS: BP 104/66; PULSE 67; RESP 14; O2SAT 94
[2016-08-16 10:33] VITALS: BP 100/69; PULSE 67; RESP 14; O2SAT 95
--- NOTE | 2016-08-16 10:34 | ENDO ---
[address] [address] ENDOSCOPY PROCEDURE PATIENT: LUZ PURCELL : 1950 MR#: [id number] ADMIT: 08/16/2016 JOB ID: [id number] DATE: 08/16/2016 PROCEDURE: Colonoscopy. INDICATIONS: Screening. The patient's ASA classification is 2. Mallampati score is 2. MEDICATIONS: 1. Versed 6 mg. 2. Fentanyl 125 mcg. INSTRUMENT USED: PCF H 180 AL. PREPARATION QUALITY: Was good. PROCEDURE DETAILS: After informed consent was obtained, the patient was brought into the GI suite, where she was placed on oxygen via nasal cannula and monitored with continuous pulse oximeter, telemetry and blood pressure monitoring. A time-out was performed. Then, she was placed in a left lateral decubitus position and medications were administered for sedation. A digital rectal examination was performed, which was unremarkable except for a small little papule 3-4 cm from the anal verge. Upon further questioning with the patient, she states that occasionally this small oval papule bleeds. She reports having this papule for many years. Rectal examination is otherwise unremarkable. The colonoscope was then inserted into the rectum and advanced under direct visualization to the cecum, which was identified by the presence of the ileocecal valve and appendiceal orifice. Once the cecum was reached, the colonoscope was withdrawn back into the rectum as the mucosa and lumen were examined. In the rectum, retroflexion was performed. Following retroflexion, remaining air in the rectum was suctioned, and procedure was completed. FINDINGS: 1. Scattered diverticula were seen throughout the sigmoid colon. 2. In the rectum, there was an approximately 4 mm sessile polyp that was removed with a cold snare. IMPRESSION: 1. Perianal papule. 2. Sigmoid diverticulosis. 3. Rectal polyp. RECOMMENDATIONS: 1. Fiber rich diet. 2. Follow up with primary care provider regarding perianal papule. 3. Repeat colonoscopy pending polyp pathology results. COMPLICATIONS: None. ESTIMATED BLOOD LOSS: Less than 5 mL.
[2016-08-16 10:36] VITALS: BP 108/74; PULSE 67; RESP 14; O2SAT 96
--- NOTE | 2016-08-17 11:45 | PATH ---
SURGICAL PATHOLOGY Attending Physician:Jessenia Pineda CASE STATUS: Signed Out PATIENT NAME: LUZ PURCELL PID: [id number] : 1950 DATE COLLECTED:08/16/2016 17:11 SPECIMEN: Rectum, Biopsy CLINICAL HISTORY: A: RECTAL POLYP FINAL DIAGNOSIS: Rectal Polyp: Tubular adenoma. ICD10: D12.8 GROSS DESCRIPTION: The specimen is received in one formalin filled container labeled with the patient's name, sublabeled "rectal polyp" and consists of a 0.3 x 0.3 x 0.3 CM portion of tissue which is entirely submitted in one cassette. 08/16/2016 [facility] ICD-9 CODES: CPT CODES: 1: 97042 Electronically Signed Out Wm Snow MD [facility] Pathology [facility] [address], [place] [address] Technical component performed at [facility], [facility] [address], [place], [address]
== END 2016-08-16 23:59 | disposition home or self-care (01) ==
LOC: END 08:49
PROVIDERS: ATTEND Internal Medicine Gastroenterology
DX: Z12.11 Encounter for screening for malignant neoplasm of colon (principal); D12.8 Benign neoplasm of rectum; K57.30 Diverticulosis of large intestine without perforation or abscess without bleeding; Z79.899 Other long term (current) drug therapy
CPT/HCPCS: 45385; 88305; G0500; J2250; J7030